=== PATIENT | male | born 1960 | race Caucasian/White ===

== ENCOUNTER 2016-09-20 11:45 | Day surgery (SDC) | payer OTHER ==
[~2016-09-20] VITALS: Ht 182.9 cm; Wt 92.2 kg
[2016-09-20] VITALS (10 sets, daily range): BP systolic 133–154; BP diastolic 79–90; PULSE 72–85; RESP 14–18; O2SAT 93–96
--- NOTE | 2016-09-20 07:55 | PCM.HPANE ---
Patient Data Surgeon Admitting Provider: Attending Provider:Jono Hayes DO Primary Care Physician:Sebastián Velázquez MD Other Provider:Dayana Riggsingham Anesthesia Reason for Visit Right Shoulder Rotator Cuff Tear With Biceps Tear Ht/WT & BMI Height (Feet): 6 Height (Inches): 0 Weight (Kilograms): 94.4 Body Mass Index 28.00 Allergies Coded Allergies: No Known Allergies (Unverified , 09/20/16) Diabetes History Hx Diabetes?: No Medications Reported Medications Ibuprofen 200 Mg [id number] Mg PO Q6H PRN For Pain Ref 0 09/16/16 History History of ENT Problems?: No Hx of Heart Problems?: No Hx of Respiratory Problem?: No Respiratory History: Denies:: Oxygen Administration Use of C-PAP Machine Hx Neurologic Problems?: No Hx of GI Problems?: No Hx of Problems?: No Male Hx: Denies:: Prostate Problems Hx Musculoskeletal Problems?: Yes Musculoskeletal History: Positive for:: Musculoskeletal Trauma (right shoulder current injury) Hx Surgeries?: No (unknown) Hx Any Other Health Problems?: No Other History: Denies:: Cancer Hx Diabetes: No Stop/Bang S-Snoring: Do You Snore Loudly: Yes T-Tired: feel tired, fatigued: No O-Obsered: Observed not breath: No P-Blood Pressure: treated: No B- Body Mass Index > 35 kg/m2: No A- Age over 50: Yes N- Neck Large Circumference: No G- Gender Male: Yes EPIFANIO Total Score: 3 Risk Assessment Category Category 1A: Patient has history of documented sleep apnea, and HAS NOT received any narcotic, sedative or anesthesia administration during this stay. Category 1B: Patient has history of documented sleep apnea, and HAS received any narcotic , sedative or anesthesia administration during this stay Category 2: Patient has SUSPECTED Obstructive Sleep Apnea, and HAS received any narcotic , sedative or anesthesia administration during this stay. Category 3: Patient has SUSPECTED Obstructive Sleep Apnea and HAS NOT received narcotic, sedative or anesthesia administration during this stay. Category 4: Outpatient in Procedural Areas with known sleep apnea or who screen positive for High Risk via the STOP/BANG questionnaire. Exam Exam General Appearance: Alert, Oriented X3, Cooperative, No Acute Distress HEENT/AIRWAY: MP 1 Lungs: Normal Air Movement Heart: Regular Rate/Rhythm Plan Impression Patient chart reviewed, patient interviewed and anesthestic plan with risks, benefits, and alternatives discussed, and informed consent obtained. ASA Physical Status: ASA1 Normal Healthy Anesthetic Plan: GA Bene/Risks/Altern/Consents: Yes HP Complete Prior to Induction: Yes Lucie Foster DO Sep 20, 2016 07:55
[~2016-09-20 11:45] MED LIST: IBUP200C PO; Lactated Ringer's 1,000 ML IV ONE
[2016-09-20] MEDS ORDERED: Propofol 10,000 mCg/mL 20 mL Inj ONE (11:46)
[2016-09-20] MEDS ORDERED: Succinylcholine Chloride 20 mg/mL 5 mL Inj ONE (11:46)
[2016-09-20] MEDS ORDERED: EPHEDrine/NS 5 mg/mL 5 mL Syringe ONE (11:46)
[2016-09-20] MEDS ORDERED: Rocuronium 10 mg/mL 5 mL Inj ONE (11:46)
[2016-09-20] MEDS ORDERED: Lidocaine PF 1% 30 mL Inj ONE (11:46)
[2016-09-20] MEDS ORDERED: Ondansetron 2 mg/mL 2 mL Inj ONE (11:46)
[2016-09-20] MEDS ORDERED: Dexamethasone 4 mg/mL Inj ONE (11:46)
[2016-09-20] MEDS ORDERED: fentaNYL-PF 50 mCg/mL 2 mL Inj ONE (11:46)
[2016-09-20] MEDS ORDERED: CeFAZolin 2 Gm/50 mL D5W Duplex Bag IV ONE (12:31)
[2016-09-20] MEDS: CeFAZolin 2 Gm/50 mL D5W IV Premix IV ONE ×2 (15:45→16:22)
[2016-09-20] MEDS ORDERED: Lactated Ringer's 500 ML IV PRN (16:23)
[2016-09-20] MEDS ORDERED: Lactated Ringer's 1,000 ML IV SCH (16:23)
[2016-09-20] MEDS ORDERED: HYDROmorphone 1 mg/mL Inj IVPUSH PRN (16:25)
[2016-09-20] MEDS ORDERED: Phenylephrine 10,000 mCg/mL Inj IVPUSH PRN (16:25)
[2016-09-20] MEDS ORDERED: MetoCLOpramide 5 mg/mL 2 mL Inj IVPUSH PRN (16:25)
[2016-09-20] MEDS ORDERED: EPHEDrine Sulfate 50 mg/mL Inj IVPUSH PRN (16:25)
[2016-09-20] MEDS ORDERED: fentaNYL-PF 50 mCg/mL 2 mL Inj IVPUSH PRN (16:25)
[2016-09-20] MEDS ORDERED: Ondansetron 2 mg/mL 2 mL Inj IVPUSH PRN (16:25)
[2016-09-20] MEDS ORDERED: Lidocaine 1%-Epi 1:100,000 20 mL Inj INFILTRATE ONE (16:30)
[2016-09-20] MEDS ORDERED: Ropivacaine-PF 0.5% 30 mL Inj INFILTRATE ONE (17:22)
[2016-09-20] MEDS ORDERED: oxyCODONE-Acetamin 5-325 mg Tablet PO PRN (18:05)
[2016-09-20] MEDS ORDERED: hydrOXYzine Pamoate 25 mg Capsule PO PRN (18:05)
--- NOTE | 2016-09-20 18:07 | PCM.ANEP1 ---
Post Anesthesia Phase 1 PACU Phase 1 Assessment Vital Signs Vital Signs Date Time Temp Pulse Resp B/P Pulse Ox O2 Delivery O2 Flow Rate FiO2 09/20/16 12:09 36.7 74 18 144/90 96 Room Air Anesthetic Administered: GA Level of Alertness: Awake, talking ENRIQUEZ's with Equal Strength: Yes Pain: No Nausea or Vomiting: No Oxygen Delivery: Room Air Lungs: Normal Air Movement Lucie Foster DO Sep 20, 2016 18:07
--- NOTE | 2016-09-20 18:07 | PCM.ANEP2 ---
Post Anesthesia Evaluation ASA/CMS Post Anesthesia VS in Patient's Normal Range?: Yes Resp Stable; Airway Patent?: Yes CV Function & Hydration Stable: Yes Mental Status Recovered?: Yes Pain control Satisfactory?: Yes N/V Control Satisfactory?: Yes Lucie Foster DO Sep 20, 2016 18:07
--- NOTE | 2016-09-20 23:18 | OP ---
[address] [address] OPERATIVE REPORT PATIENT: LATASHA BLACK : 1960 MR#: [id number] ADMIT: 09/20/2016 JOB ID: [id number] DATE OF SURGERY: 09/20/2016 PREOPERATIVE DIAGNOSIS(ES): Right shoulder rotator cuff tear with biceps tear and impingement. POSTOPERATIVE DIAGNOSIS(ES): Right shoulder rotator cuff tear with biceps tear and impingement. PROCEDURE: Right shoulder video arthroscopy with subacromial decompression and arthroscopic rotator cuff repair with mini open subpectoral biceps tenodesis. SURGEON: Jono Hayes DO. CERTIFIED HYPERBARIC TECHNOLOGIST: Chantelle Gutierrez PA-C. INDICATIONS: The patient is a 55-year-old male who was working moving a compressor in boat fabrication when he felt a pop and had immediate onset of pain and deformity of his right shoulder. He had difficulty lifting the arm overhead. He had an MRI performed which demonstrated a rotator cuff tear, as well as biceps tendon rupture of the long head. We discussed treatment options for this and he wished to proceed with a shoulder arthroscopy with rotator cuff repair and mini open subpectoral biceps tenodesis. We discussed the risks, benefits and possible complications of surgery including, but not limited to injury to nerves and vessels, infection, bleeding, incomplete relief of symptoms, stiffness, need for additional procedures. The patient had good understanding. All questions were answered and he wished to proceed. A surgical coder was required for the successful completion of procedure. PROCEDURE IN DETAIL: Patient is brought to the operating room. He was given a preoperative antibiotic and interscalene block, as well as general anesthetic. Placed comfortably into the beach chair position. The right shoulder was sterilely prepped and draped. An incision was made over the posterolateral shoulder and blunt trocar was introduced into the glenohumeral joint. Inspection was undertaken. His humeral head was found to be free of any articular pathology. The glenoid had some minor C1-C2 chondromalacia. His biceps tendon was found to be torn. An anterior portal was established under needle localization. The subscapularis was found to be intact. The biceps stump and superior labrum was debrided with the shaver where he had some degenerative tearing present. He was noted to have a tear in the supraspinatus which was visible over the anterior aspect from the joint side. The scope was then removed and replaced in the subacromial space, and a subacromial soft tissue decompression was undertaken. He was noted to have a fair amount of bursitis, as well as spurring of the acromion. About 4 mm of acromion was removed with the bur and the rotator cuff tear was encountered. This was debrided with shaver. It was a relatively small U-shaped tear and was repaired with a single Arthrex corkscrew suture anchor. This was placed into the tuberosity after the tuberosity had been repaired and then two simple stitches were used to repair the cuff. The scope was then removed and the arthroscopic portion was completed. An incision was made over the distal aspect of the bicipital groove for the mini open biceps tenodesis. Dissection was carefully carried through subcutaneous tissue. Electrocautery was used for hemostasis. The fascia was then opened and the long head biceps tendon was herniated out through the wound. It was hemorrhagic and had been clearly traumatically ruptured. Lateral retractor was then placed and soft tissue was cleared off of the distal bicipital groove. A 4.5 drill hole was made proximally and two drill holes were made distally. The biceps tendon was then cut to appropriate length and whipstitched, and then a Mitek suture passer was used to tenodese the biceps. This was passed so that the tendon entered the 4.5 drill hole proximally and exited in the two suture limbs, exited through the 2.0 drill holes distally. A free needle was then used to tie the tendon back onto itself with appropriate resting tension. The wound was then irrigated and closed with 2-0 Vicryl to close the fascia and subcu. The skin was closed with running 4-0 Monocryl and the portals were closed with interrupted nylon suture. Naropin was added as an adjunct local anesthetic. Sterile dressings were applied. Patient tolerated the procedure well. Blood loss was 10 cc. POSTOPERATIVE PROTOCOL: Will let the patient use an UltraSling arm sling for the next six weeks with no lifting or abduction. Follow up in the clinic in two weeks or sooner if needed. He was given a prescription for Percocet for pain.
== END 2016-09-20 23:59 | disposition home or self-care (01) ==
LOC: SAS 11:45
PROVIDERS: ATTEND Orthopaedic Surgery
DX: S46.011A Strain of muscle(s) and tendon(s) of the rotator cuff of right shoulder, initial encounter (principal); S46.111A Strain of muscle, fascia and tendon of long head of biceps, right arm, initial encounter; X50.0XXA Overexertion from strenuous movement or load, initial encounter; W31.89XA Contact with other specified machinery, initial encounter; Y93.H3 Activity, building and construction; Y92.63 Factory as the place of occurrence of the external cause; Y99.0 Civilian activity done for income or pay
CPT/HCPCS: 23430; 29826; 29827; 76942; J0171; J0330; J0690; J1100; J2405; J2795; J7120